=== PATIENT | female | born 1950 | race Caucasian/White ===

== ENCOUNTER 2018-04-16 10:55 | Day surgery (SDC) | payer MEDICARE, BC ==
--- NOTE | 2018-04-16 06:38 | History and Physical - [facility] ---
CHIEF COMPLAINT/HISTORY OF CHIEF COMPLAINT: This patient presents with a history of a post lumbar laminectomy radiculopathy. Due to the failure of all therapies, she is here for an intraspinal implanted catheter trial with Hydromorphone to determine if the implantation of a permanent system or pump can be of any value in pain control. PAST MEDICAL HISTORY: Asthmatic bronchitis, chronic headaches, thrombophlebitis , hypertension, peptic ulcer disease, fibromyalgia, depression and difficulty sleeping. PAST SURGICAL HISTORY: Lumbar spinal surgery and spinal cord stimulator implant. MEDICATIONS ON ADMISSION: List to be provided ALLERGIES: CECLOR, MORPHINE AND ADHESIVE TAPE. FAMILY/PSYCHOSOCIAL HISTORY: Social history - Caffeine. Family history - Thyroid, asthma, and hypertension. SYSTEMS REVIEW: The patient seems appropriate. There is no acute distress. The remainder of the systems review is noncontributory. PHYSICAL EXAMINATION: Height is 5'5", weight is 150. No vital signs. HEENT: Within normal limits. LUNGS: Clear. HEART: Rapid and regular. ABDOMEN: Nontender. MUSCULOSKELETAL: Examination of the musculoskeletal system shows diffuse tenderness throughout the mid thoracic and extending into the lower extremities somewhat more right than left. There are obvious motor and sensory abnormalities to the right lower extremity with weakness. Ambulation - No assistive device utilized. NEUROLOGIC: Cranial nerves are intact. IMPRESSION: POST LUMBAR LAMINECTOMY SYNDROME, ICD-10 CODE M96.1 WITH RADICULOPATHY, ICD-10 CODE M54.16 AND M54.17. PLAN: The patient is here for an implanted spinal catheter infusion trial using Hydromorphone to determine if the implantation of a permanent system can be of any value in pain control. The procedure will be considered outpatient, although an overnight stay will be evaluated. The potential risks, side effects , and complications have been carefully reviewed and discussed including spinal cord injury, nerve root injury, and paralysis. An epidural blood patch will be performed at the end of the procedure as a prophylactic measure to prevent spinal headache. JOB NUMBER: [id number] [facility]
[~2018-04-16 10:55] MED LIST: ACETAMINOPHEN 1,000 MG/100 ML BTL IV ONE; CLINDAMYCIN 600MG/50ML PREMIX 600 MG/50 ML BAG IVPB ONE; FAMOTIDINE 20MG TABLET PO ONE; MECLIZINE 25 MG TABLET PO ONE; METOCLOPRAMIDE 10 MG TABLET PO ONE; MORPHINE SULFATE/PF 0.05 MG in 0.9 % SODIUM CHLORIDE 10ML VIA 0.95 ML IV ONE; MORPHINE SULFATE/PF 10.4 MG in 0.9 % SODIUM CHLORIDE 500ML 489.6 ML IV ONE
[2018-04-16] MEDS ORDERED: Clindamycin 600mg vial 150 MG/ML VIAL IVPB ONE (10:56)
[2018-04-16] MEDS ORDERED: LIDOCAINE 2% MDV (20MG/ML) 20ML VIAL IV ONE (10:56)
[2018-04-16] MEDS ORDERED: PROPOFOL 10 MG/ML VIAL IV ONE (10:56)
[2018-04-16] MEDS ORDERED: BUPIVACAINE 0.5% W/EPI MPF 30 ML VIAL IVP ONE (10:56)
[2018-04-16] MEDS ORDERED: FENTANYL PF 100MCG/2ML VIAL IV ONE (10:56)
[2018-04-16] MEDS ORDERED: MIDAZOLAM HCL 2MG/2ML VIAL IV ONE (10:56)
[2018-04-16] MEDS ORDERED: LIDOCAINE 1% W/EPI 1:200,000 MPF 30ML SQ ONE (10:56)
[2018-04-16] MEDS ORDERED: KETAMINE HCL 100MG/1ML VIAL INJ ONE (10:56)
[2018-04-16] MEDS ORDERED: HYDROCORTISONE 100MG/VIAL IVP ONE (10:56)
[2018-04-16] MEDS ORDERED: OXYCODONE/APAP 10MG-325MG TABLET PO PRN (15:35)
[2018-04-16] MEDS ORDERED: RINGERS SOLUTION,LACTATED 1,000 ML IV SCH (15:35)
[2018-04-16] MEDS ORDERED: HYDROCODONE/APAP 7.5/325MG TABLET PO PRN ×2 (15:35)
[2018-04-16] MEDS ORDERED: TEMAZEPAM 15 MG CAPSULE PO PRN ×2 (15:35)
[2018-04-16] MEDS ORDERED: AL HYDROX/MAG HYDROX 30ML UD PO PRN (15:35)
[2018-04-16] MEDS ORDERED: SENNOSIDES/DOCUSATE SODIUM UD CAPSULE PO PRN ×2 (15:35)
[2018-04-16] MEDS ORDERED: HYDROMORPHONE HCL 2 MG/ML VIAL IM PRN ×2 (15:35)
[2018-04-16] MEDS ORDERED: DIPHENHYDRAMINE HCL 50 MG/ML VIAL IVP PRN ×2 (15:35)
[2018-04-16] MEDS ORDERED: DIPHENHYDRAMINE HCL 25 MG CAPSULE PO PRN ×2 (15:35)
[2018-04-16] MEDS ORDERED: METOCLOPRAMIDE HCL 10 MG/2 ML VIAL IVP PRN (15:35)
[2018-04-16] MEDS ORDERED: ACETAMINOPHEN 325 MG TAB PO PRN ×2 (15:35)
[2018-04-16] MEDS ORDERED: METOCLOPRAMIDE 10 MG TABLET PO PRN (15:35)
[2018-04-16] MEDS ORDERED: NALOXONE 0.4 MG/1 ML VIAL IVP PRN (15:37)
[2018-04-16] MEDS ORDERED: PATIENT OWN MED: CYCLOBENZAPRINE 10 MG PO PRN (15:38)
[2018-04-16] MEDS ORDERED: PATIENT OWN MED: VENTOLIN HFA INH PRN (15:39)
[2018-04-16] MEDS ORDERED: BECLOMETHASONE PO PRN (15:51)
[2018-04-16] MEDS: CLINDAMYCIN 600MG/50ML PREMIX 600 MG/50 ML BAG IVPB SCH (20:32)
[2018-04-16] MEDS: OXYCODONE/APAP 10MG-325MG TABLET PO PRN (20:44)
[2018-04-16] MEDS: PATIENT OWN MED: AMITIZA 24 MCG PO SCH (21:03)
[2018-04-16] MEDS: LYRICA 200 MG PO SCH (21:04)
[2018-04-16] MEDS ORDERED: PATIENT OWN MED: TRAZODONE 50 MG PO SCH (22:00)
[2018-04-17] MEDS: OXYCODONE/APAP 10MG-325MG TABLET PO PRN ×2 (02:08→09:22)
[2018-04-17] MEDS: CLINDAMYCIN 600MG/50ML PREMIX 600 MG/50 ML BAG IVPB SCH (04:36)
[2018-04-17] MEDS ORDERED: PATIENT OWN MED: OMEPRAZOLE 40 MG PO SCH (07:00)
[2018-04-17] MEDS ORDERED: LEVOTHYROXINE 137 MCG PO SCH (07:00)
[2018-04-17] MEDS: PATIENT OWN MED: AMITIZA 24 MCG PO SCH (09:11)
[2018-04-17] MEDS: LYRICA 200 MG PO SCH (09:13)
[2018-04-17] MEDS ORDERED: FAMCICLOVIR 500 MG PO SCH (10:00)
[2018-04-17] MEDS ORDERED: PATIENT OWN MED: POTASSIUM 20 MEQ PO SCH (10:00)
[2018-04-17] MEDS ORDERED: PATIENT OWN MED: FUROSEMIDE 40 MG PO SCH (10:00)
[2018-04-17] MEDS ORDERED: PATIENT OWN MED: LOSARTAN 100 MG PO SCH (10:00)
[2018-04-17] MEDS ORDERED: PATIENT OWN MED: ALPRAZOLAM 0.5 MG PO SCH (10:00)
[2018-04-17] MEDS ORDERED: PATIENT OWN MED: SERTRALINE 100 MG PO SCH (10:00)
[2018-04-17] MEDS ORDERED: PATIENT OWN MED: FOLIC ACID 1 MG PO SCH (10:00)
[2018-04-17] MEDS ORDERED: BREO ELIPTA INH SCH (10:00)
[2018-04-17] MEDS ORDERED: PATIENT OWN MED: SERTRALINE 50 MG PO SCH (10:00)
--- NOTE | 2018-04-18 09:16 | Operative Note ---
DATE: 04/16/2018. PREOPERATIVE DIAGNOSIS: 1. POSTLUMBAR LAMINECTOMY SYNDROME, ICD-10 CODE M96.1. 2. RADICULOPATHY, ICD-10 CODE M54.16 AND M54.17. PROCEDURES: 1. Fluoroscopically guided access spinal space at L3-4. Placement of thin- walled spinal catheter at T7. 2. Diagnostic myelography with radiologic supervision and interpretation. 3. Spinal bolus of morphine 0.025 mg into the spinal space. 4. Incision, subcutaneous dissection, and anchoring of spinal catheter to supraspinous fascia with an anchoring device and nonabsorbable suture. 5. Incision, subcutaneous dissection, and creation of subcutaneous pouch at the left posterior gluteal margin ultimately for pump identified as a Medtronic programmable pump. 6. Tunneling between pouches. Placement of the internal spinal catheter into left posterior pouch. 7. Revision and resection of spinal catheter, interfaced with second catheter component. Tunneling of second catheter component 6.0 cm superior to the pouch exiting the skin. 8. Interface external catheter with external pump set to deliver morphine at 0.4 mg per day. 9. Closure of incisions using Vicryl for the fascia and running nylon for the skin. 10. No blood patch was performed because of poor access. 11. Dressings placed securing catheter and all connections under sterile dressing. 12. Patient transported to the recovery room stable and flat with a pillow under the head and knees. SURGEON: Gabino García D.O. ANESTHESIA: Local sedation. ANESTHESIA PROVIDER: Alison Killian CRNA. INDICATIONS: This patient presents with a history of intractable postlumbar laminectomy radiculopathy and multiple compression fractures. She is here for a spinal opioid infusion trial with morphine because of allergies to Dilaudid. The focus of the pain appears to be midthoracic and focuses on an inoperative compression at T7. DESCRIPTION OF PROCEDURE: Intravenous lines, vital sign monitoring, and intravenous sedation. Prepped and draped with sterile technique with the patient positioned prone. The spinal interspace at L3-4 was marked and infiltrated. A 20-gauge spinal needle was inserted into the spinal space using AP and lateral imaging. The needle was advanced on the lateral image. With cerebrospinal fluid flow, a thin-walled spinal catheter was advanced and positioned at T7. Diagnostic myelography showed appropriate flow characteristics with the catheter tip slightly off midline, left. No kinks or bends. Cerebrospinal fluid was identified through the catheter. A bolus of morphine 0.025 mg was given. The catheter was clamped to stop cerebrospinal fluid leak. The skin above and below the needle was infiltrated. An incision was made and subcutaneous dissection was conducted to the supraspinous fascia. The needle was removed, and then the catheter was anchored to the supraspinous fascia with an anchoring device and nonabsorbable suture. At the left posterior gluteal margin, the site picked by the patient ultimately for the pump, the skin was infiltrated. An incision was made and subcutaneous dissection was conducted to form a small subcutaneous pouch. The spinal catheter was then tunneled into the posterior pouch and exited the pouch. The catheter was then interfaced with the second catheter component by way of connector. This revised second catheter component was then tunneled 6.0 cm superior to this pouch, exiting the skin. The external catheter component was then interfaced with an external pump which was set to deliver morphine at 0.4 mg a day. The midline spinal incision was closed using Vicryl for the fascia and a running nylon for the skin. The left posterior pouch incision was closed with running nylon. The catheter and all connections were then placed under sterile dressing. With the pump infusing, an epidural blood patch was considered but could not be performed because of the extensive degenerative changes and abnormal anatomy in the spine below the dural puncture. The dressings were reinforced, and she was transported to the recovery room stable and flat with a pillow under the head and knees. In the recovery room she was symptomatic with chronic lung disease. She was nebulized, and we transported her to the floor. She will be monitored overnight if necessary. Medicine can see this patient before discharge. In the morning she will be discharged. DISCHARGE INSTRUCTIONS: 1. The sites are to remain clean and dry. No showering or bathing in any way that would disrupt dressings. If this happens, contact the clinic. 2. Standard medications to be resumed. No blood thinners or aspirin. 3. She will be seen in the office for up to three reprogramming sessions until we achieve appropriate pain control. Until then she will gradually reduce her oral medications. 4. All other instructions were provided including numbers to contact with problems. 5. Potential opioid side effects including respiratory depression, nausea, vomiting, constipation, urinary retention, lightheadedness, and rash have all been discussed and reviewed. JOB NUMBER: [id number] cc: Dr. Awilda PIKE
--- NOTE | 2018-04-18 10:37 | RADIOLOGY REPORT ---
EXAM: THORACIC SPINE HISTORY: STIMULATOR PLACEMENT. TECHNIQUE: A single AP view of the thoracic spine was performed. FINDINGS: Stimulator lead tips are at the T6-T7 level. IMPRESSION: STIMULATOR LEAD TIPS ARE AT THE T6-T7 LEVEL. JOB NUMBER: [id number] [facility]
== END 2018-04-17 10:00 | disposition home or self-care (01) ==
LOC: SUR 10:55 → MEDSURG 15:33 → SUR 04-17 10:00
PROVIDERS: ATTEND Pain Medicine Interventional Pain Medicine
DX: M96.1 Postlaminectomy syndrome, not elsewhere classified (principal); M54.16 Radiculopathy, lumbar region; M54.17 Radiculopathy, lumbosacral region; I10 Essential (primary) hypertension; J45.909 Unspecified asthma, uncomplicated; E03.9 Hypothyroidism, unspecified; G62.9 Polyneuropathy, unspecified; Z98.84 Bariatric surgery status
CPT/HCPCS: 62350; 62360; 01936; 72020; 94761; 94760; Q9967; J3010; J3490; J1720; J2765; J7040

== ENCOUNTER 2018-04-30 11:56 | Day surgery (SDC) | payer MEDICARE, BC ==
--- NOTE | 2018-04-30 06:49 | History and Physical - [facility] ---
CHIEF COMPLAINT/HISTORY OF CHIEF COMPLAINT: This patient with a history of intractable thoracic and lumbar radiculopathy has an implanted spinal catheter infusion trial with Morphine ongoing. The Morphine infusion because of Dilaudid or Hydromorphone allergies. The current pump implanted catheter trial is achieving 75% pain control. Due to the failure of all therapy and the success of the trial, the patient presents today for implantation of a permanent system. PAST MEDICAL HISTORY: Asthmatic bronchitis, chronic headaches, thrombophlebitis , hypertension, peptic ulcer disease, fibromyalgia, depression and difficulty sleeping. PAST SURGICAL HISTORY: Lumbar spinal surgery and spinal cord stimulator implant. MEDICATIONS ON ADMISSION: List to be provided. ALLERGIES: CECLOR, DILAUDID AND ADHESIVE TAPE. FAMILY/PSYCHOSOCIAL HISTORY: Social history - Caffeine. Family history - Thyroid, asthma, and hypertension. SYSTEMS REVIEW: The patient is appropriate in no acute distress. The remainder of the systems review is noncontributory. PHYSICAL EXAMINATION: Height is 5'5", weight is 150. No vital signs. HEENT: Within normal limits. LUNGS: Clear. HEART: Rapid and regular. ABDOMEN: Nontender. MUSCULOSKELETAL: Examination of the musculoskeletal system shows tenderness underlying across the mid thoracic and low back. The dressings for the implanted catheter trial are still in place. The external pump currently infusing at 0.4 which is delivering Morphine at 0.8 mg per day. All dressings are intact. No breakdown or violation of integrity. Underlying pain pattern is thoracic and lumbar with lower extremity function intact with pain across multiple dermatomes primarily right lower extremity front and back surface. Motor and sensory abnormalities noted. An assistive device is used for ambulation. NEUROLOGIC: Cranial nerves are intact. IMPRESSION: 1. THORACIC AND LUMBAR RADICULOPATHY, ICD-10 CODE M54.14 AND M54.16. 2. POST LUMBAR LAMINECTOMY SYNDROME, ICD-10 CODE M96.1 WITH IMPLANTED CATHETER INFUSION TRIAL MORPHINE. PLAN: Due to the failure of all therapies and the success of the trial, the patient presents today for implantation of a permanent system. The procedure will be considered outpatient although an overnight stay will be evaluated. JOB NUMBER: [id number] [facility]
[~2018-04-30 11:56] MED LIST changes: +HYDROMORPHONE HCL 0.04 GM in 0.9 % SODIUM CHLORIDE 10ML VIA 20 ML IV ONE; +HYDROMORPHONE PF 2MG/ML AMP 0.008 MG in 0.9 % SODIUM CHLORIDE 10ML VIA 0.996 ML IV ONE; -MORPHINE SULFATE/PF 0.05 MG in 0.9 % SODIUM CHLORIDE 10ML VIA 0.95 ML IV ONE; -MORPHINE SULFATE/PF 10.4 MG in 0.9 % SODIUM CHLORIDE 500ML 489.6 ML IV ONE
[2018-04-30] MEDS ORDERED: 0.9 % SODIUM CHLORIDE 10ML SYR IVP ONE (11:57)
[2018-04-30] MEDS ORDERED: BUPIVACAINE 0.5% W/EPI MPF 30 ML VIAL IVP ONE (11:57)
[2018-04-30] MEDS ORDERED: FENTANYL PF 100MCG/2ML VIAL IV ONE (11:57)
[2018-04-30] MEDS ORDERED: PROPOFOL 10 MG/ML VIAL IV ONE (11:57)
[2018-04-30] MEDS ORDERED: MORPHINE SULFATE PF 10MG/10ML VIAL IV ONE (11:57)
[2018-04-30] MEDS ORDERED: MIDAZOLAM HCL 2MG/2ML VIAL IV ONE (11:57)
[2018-04-30] MEDS ORDERED: LIDOCAINE 2% MDV (20MG/ML) 20ML VIAL IV ONE (11:57)
[2018-04-30] MEDS ORDERED: HEPARIN SODIUM FLUSH 100 UNITS/ML SYR 5ML IVP ONE (11:57)
[2018-04-30] MEDS ORDERED: LIDOCAINE 1% W/EPI 1:200,000 MPF 30ML SQ ONE (11:57)
--- NOTE | 2018-05-01 17:21 | Operative Note - [facility] ---
DATE OF SURGERY: 04/30/18 PREOPERATIVE DIAGNOSES: 1. POST LUMBAR LAMINECTOMY SYNDROME, ICD-10 CODE = M96.1 WITH RADICULOPATHY, ICD -10 CODE = M54.16 AND M54.17. 2. IMPLANTED SPINAL CATHETER INFUSION TRIAL HYDROMORPHONE. OPERATION: 1. FLUOROSCOPICALLY-GUIDED INCISION, SUBCUTANEOUS DISSECTION, AND REMOVAL OF EXTERNAL SPINAL CATHETER. 2. INCISION, SUBCUTANEOUS DISSECTION, AND REVISION OF INTERNAL SPINAL CATHETER. RESECT REVISED CATHETER WITH SECOND CATHETER COMPONENT BY WAY OF CONNECTOR. 3. INCISION, SUBCUTANEOUS DISSECTION, AND CREATION OF SUBCUTANEOUS POUCH AT LEFT FLANK FOR PLACEMENT OF PUMP IDENTIFIED A MEDTRONIC PROGRAMMABLE 20 ML. 4. PLACEMENT OF MEDTRONIC PUMP PRE-FILLED MORPHINE 1 MG PER ML ONTO FIELD. 5 INTERFACE PROGRAMMABLE PUMP WITH REVISED CATHETER. 6. PLACEMENT OF PUMP INTO POUCH SECURED TO POSTERIOR FASCIA WITH NONABSORBABLE SUTURE THREE POINTS PUMP EYELETS. 7. PLACEMENT OF CURVED 24-GAUGE CHU NEEDLE TO ACCESS PORT PROGRAMMABLE PUMP ASPIRATION AND CLEARING CATHETER OF OPIOID AND CSF MIXTURE. 8. DIAGNOSTIC MYELOGRAPHY WITH RADIOLOGIC SUPERVISION AND INTERPRETATION. 9. CLOSURE OF INCISION USING STRATAFIX SUTURE 2-0 FASCIA, 3-0 SKIN. DERMABOND CLOSURE. 10. PROGRAMMING OF PUMP TO DELIVER MORPHINE CONTINUOUS INFUSION 1.6 MG PER DAY. SURGEON: CHERRI PEARSON D.O. ANESTHESIA: LOCAL SEDATION. ANESTHESIA PROVIDER: EDGAR MORENO CRNA. INDICATION: This patient presents with a history of intractable post lumbar laminectomy radiculopathy. Due to the failure of all therapies, an implanted spinal catheter infusion trial with Morphine because of Hydromorphone allergies was performed. The initial increase showed the patient not achieving appreciable pain control. At the time, a second increase was performed increasing her infusion from 0.8 to 1.6 mg per day. No documentation was found, which identify her increase pain control at 75% plus percent. This second increase result in pain control was confirmed through the patient and who were here for implant and not removal. Discussion did identify the absence of the second evaluation form, which would have documented the 75% plus percent pain control achieved through the second increase. With the significant increase noted and the failure of all therapies, she was then prepared today for implantation of a permanent system. PROCEDURE: Intravenous line, vital sign monitoring, IV sedation by Anesthesia, Edgar Moreno, patient position prone. Sterile prep, sterile technique. The left flank pouch was identified, marked, infiltrated, incision made, and subcutaneous dissection was conducted to form a pouch of suitable size and depth for the pump identified as a Medtronic 20 mL Programmable. The indwelling catheter connection to the external catheter was clamped, cut, and the external catheter was removed by pulling away from the incision. The internal catheter was then resected and revised with a second catheter component by way of connector. This second catheter component was interfaced to a pump, which was then placed onto the field and 20 mL Programmable Medtronic pre-filled Morphine 1 mg per mL. Revised catheter interfaced to the pump was then performed. Antibiotic irrigation and Bovie for hemostasis. The pump was then placed into the formed pouch, secured to the posterior fascia with nonabsorbable suture three points pump eyelets. With the pump into the pouch, a 24-gauge Chu needle was then inserted into the access port and 1 mL of catheter content was aspirated clearing the catheter of opioid and a CSF mixture. Diagnostic myelography was then performed through the access port. Contrast flowed through the internal net where the pump identified appropriate flow. Pump catheter connection identified confirming patency. No kinks, bends, or leaks. Tip of the catheter, T7-8, was identified with smooth linear flow of contrast noted confirming functionality of the catheter and integrity of the system. At that point, the incision was then closed using STRATAFIX suture 2-0 fascia, 3-0 skin , Dermabond closure was placed over the incision. She was transported to the Recovery Room stable. Pump was programmed to deliver by continuous infusion Morphine at the end trial dose 1.6 mg a day. She was fully stable, awake, and alert. She was monitored until stable then prepared for discharge by her request. DISCHARGE INSTRUCTIONS: 1. Sites remain clean and dry. No showering or bathing in any way that would disrupt dressings. If it happens, contact the clinic. 2. Standard medications resumed including the antibiotic Levaquin 500 mg once a day for 14 days. 3. The office will contact the patient at home in the next 24-48 hours to set up a time in 7-10 days for us to evaluate the sites. Until then, keep activities controlled. Spinal opioid side-effects; respiratory depression, nausea, vomiting, constipation, urinary retention, lightheadedness, or rash have all been discussed and reviewed. All other instructions provided, numbers to contact with problems given. She was then discharged. cc: Dr. Kaiser JOB NUMBER: [id number] [facility]
== END 2018-04-30 17:15 | disposition home or self-care (01) ==
LOC: SUR 11:56
PROVIDERS: ATTEND Pain Medicine Interventional Pain Medicine
DX: M96.1 Postlaminectomy syndrome, not elsewhere classified (principal); M54.16 Radiculopathy, lumbar region; M54.17 Radiculopathy, lumbosacral region; I10 Essential (primary) hypertension; D64.9 Anemia, unspecified; J45.909 Unspecified asthma, uncomplicated
CPT/HCPCS: 62350; 62362; 01936; 62367; Q9967; J3010; J1642; C1755; C1776